=== PATIENT | male | born 1975 | race Caucasian/White ===

== ENCOUNTER 2019-03-12 19:34 | Emergency (ER) | payer MEDICAID ==
[2019-03-12] MEDS: HYDROCODONE/APAP (5/325) TAB PO (20:46)
[2019-03-12] MEDS: DIPHTH/TET/ACEL PERTUSS (ADULT) 0.5 ML VIAL IM* (20:47)
[2019-03-12] MEDS: LIDOCAINE 1% (MDV) 20 ML INJ SC (20:48)
[2019-03-12] MEDS: BACITRACIN 0.9 GM OINT TOP (22:19)
== END 2019-03-12 22:55 | disposition home or self-care (01) ==
LOC: FTE 19:34
DX: S61.212A Laceration without foreign body of right middle finger without damage to nail, initial encounter (principal); S61.214A Laceration without foreign body of right ring finger without damage to nail, initial encounter; W26.8XXA Contact with other sharp object(s), not elsewhere classified, initial encounter; Y92.9 Unspecified place or not applicable; Z23 Encounter for immunization; Z86.73 Personal history of transient ischemic attack (TIA), and cerebral infarction without residual deficits
CPT/HCPCS: 12002; 73130-RT; 90471; 90715; 99283-25